=== PATIENT | female | born 1995 | race Caucasian/White ===

== ENCOUNTER 2018-09-15 17:06 | Emergency (ER) | payer OTHER ==
[2018-09-15 17:39] VITALS: BP 122/72
--- NOTE | 2018-09-16 08:23 | PHYS DOC ---
Past History Past Medical History: No Pertinent History Past Surgical History: Appendectomy, Tonsillectomy Alcohol Use: None Drug Use: None Adult General Chief Complaint Chief Complaint: BLURRED/DOUBLE VISION [facility] HPI Patient is a 23-year-old female presents with multiple complaints her primary complaint is that of headache and vision change yesterday. She is 8 weeks she did note yesterday she had approximately 20 minute period where she had loss of vision totally in her left eye began to came back but was a little blurry for a while and then she developed gradual onset of a progressively more severe headache throbbing in nature left side of the head that went away after she took some Tylenol and rested. Today she has no symptoms at all she feels totally fine but she called the advice line who recommended emergency room evaluation. In addition the patient has had a cough for 2 days as well. No fever that she knows of she does have a history of weekly headaches she's never been formally diagnosed with migraines but she usually gets left-sided headaches once a week but has never had a vision changes. Review of Systems Review of Systems Constitutional: Denies fever or chills [] Eyes: HENT: Denies nasal congestion or sore throat [] Respiratory: Cardiovascular: No additional information not addressed in HPI [] GI: Nausea was noted Musculoskeletal: Denies back pain or joint pain [] Integument: Denies rash or skin lesions [] Neurologic: Denies headache,[] Endocrine: Denies polyuria or polydipsia [] All other systems were reviewed and found to be within normal limits, except as documented in this note. Allergies Allergies Allergies Coded Allergies Type Severity Reaction Last Updated Verified No Known Drug Allergies 09/15/18 No Physical Exam Physical Exam Constitutional: Well developed, well nourished, no acute distress, non-toxic appearance. [] HENT: Normocephalic, atraumatic, bilateral external ears normal, oropharynx moist, no oral exudates, nose normal. [] Eyes: PERRLA, EOMI, conjunctiva normal, no discharge. [] Neck: Normal range of motion, no tenderness, supple, no stridor. [] Cardiovascular:Heart rate regular rhythm, no murmur [] Lungs & Thorax: Bilateral breath sounds clear to auscultation [] Abdomen: Bowel sounds normal, soft, no tenderness, no masses, no pulsatile masses. [] Skin: Warm, dry, no erythema, no rash. [] Back: No tenderness, no CVA tenderness. [] Extremities: No tenderness, no cyanosis, no clubbing, ROM intact, no edema. [] Neurologic: Alert and oriented X 3, normal motor function, normal sensory function, no focal deficits noted. []Visual valentino are intact extraocular movements are intact cerebellar function is intact speech is normal patient is completely alert and oriented. Psychologic: Affect normal, judgement normal, mood normal. [] Current Patient Data Vital Signs Vital Signs Date Time Temp Pulse Resp B/P (MAP) Pulse Ox O2 Delivery O2 Flow Rate FiO2 09/15/18 17:39 98.0 82 18 97 Room Air EKG EKG [] Radiology/Procedures Radiology/Procedures [] Course & Med Decision Making Course & Med Decision Making Pertinent Labs and Imaging studies reviewed. (See chart for details) []23-year-old female is 8 weeks presenting with spectrum of symptoms yesterday that are most consistent with migraine disease. Patient is completely neurologically intact and has no symptoms at all today she came here at the advice of the advice line phone call. Her symptoms went away and have not recurred today arguing strongly for a migraine pathology.No headache at this time. She says her vision is back to baseline as well. Patient was encouraged to take [id number] agents for continued migraine control as that seemed to work last night and to follow-up here for any new or concerning neurologic symptoms otherwise follow-up with primary are doctor if headaches were to persist on an ongoing basis. 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 Departure Departure: Impression: Primary Impression: Migraine Disposition: HOME, SELF-CARE Condition: STABLE Patient Instructions: Migraine Headache BLUE PERAZA MD Sep 16, 2018 08:23
== END 2018-09-15 17:25 | disposition home or self-care (01) ==
LOC: ER 17:06
DX: G43.909 Migraine, unspecified, not intractable, without status migrainosus (principal)
CPT/HCPCS: 99281

== ENCOUNTER 2019-08-17 21:40 | Emergency (ER) | payer OTHER ==
[~2019-08-17] VITALS: Ht 157.5 cm; Wt 52.2 kg
[2019-08-17] MEDS ORDERED: PREN1TAB58 PO (22:01)
[2019-08-17] MEDS ORDERED: ACET500T68 PO (22:03)
[2019-08-17 22:46] LABS: INFLUENZA A PATIENT NEGATIVE (NEGATIVE); INFLUENZA B PATIENT NEGATIVE (NEGATIVE)
[2019-08-17 23:05] VITALS: BP 107/69
--- NOTE | 2019-08-18 00:39 | PHYS DOC ---
Past History Past Medical History: No Pertinent History Past Surgical History: Appendectomy, Tonsillectomy Alcohol Use: None Drug Use: None Adult General Chief Complaint Chief Complaint: SORE THROAT HPI HPI Patient is a 24-year-old female presenting with Chief complaint of left ear pain sore throat bodyaches and a fever earlier in the day. No urinary symptoms no abdominal pain no vaginal bleeding. Patient is 12 weeks Review of Systems Review of Systems Constitutional: Musculoskeletal All other systems were reviewed and found to be within normal limits, except as documented in this note. Allergies Allergies Allergies Coded Allergies Type Severity Reaction Last Updated Verified No Known Drug Allergies 08/17/19 No Physical Exam Physical Exam Constitutional: Well developed, well nourished, no acute distress, non-toxic appearance. [] HENT: Normocephalic, atraumatic, bilateral external ears normal, oropharynx moist, no oral exudates, nose normal. []TMs clear bilaterally no oral exudate Eyes: PERRLA, EOMI, conjunctiva normal, no discharge. [] Neck: Normal range of motion, no tenderness, supple, no stridor. [] Cardiovascular:Heart rate regular rhythm, no murmur [] Lungs & Thorax: Bilateral breath sounds clear to auscultation [] Abdomen: Bowel sounds normal, soft, no tenderness, no masses, no pulsatile masses. [] Skin: Warm, dry, no erythema, no rash. [] Back: No tenderness, no CVA tenderness. [] Extremities: No tenderness, no cyanosis, no clubbing, ROM intact, no edema. [] Neurologic: Alert and oriented X 3, normal motor function, normal sensory func tion, no focal deficits noted. [] Psychologic: Affect normal, judgement normal, mood normal. [] Current Patient Data Vital Signs Vital Signs Date Time Temp Pulse Resp B/P (MAP) Pulse Ox O2 Delivery O2 Flow Rate FiO2 08/17/19 21:45 98.3 93 20 130/71 (90) 98 Room Air Lab Results Laboratory Tests Test 08/17/19 21:50 Influenza Type A (Rapid) Negative (NEGATIVE) Influenza Type B (Rapid) Negative (NEGATIVE) Group A Streptococcus Rapid Negative (NEGATIVE) EKG EKG [] Radiology/Procedures Radiology/Procedures [] Course & Med Decision Making Course & Med Decision Making Pertinent Labs and Imaging studies reviewed. (See chart for details) []Bedside ultrasound shows good heart tones good movement. heart tones in the 140s rapid strep and flu were negative suspect viral syndrome reassurance provided Aba Disclaimer Dragon Disclaimer This electronic medical record was generated, in whole or in part, using a voice recognition dictation system. Departure Departure: Impression: Primary Impression: Sore throat Disposition: HOME, SELF-CARE Condition: STABLE Patient Instructions: Sore Throat, [id number] BLUE PERAZA MD Aug 18, 2019 00:39
== END 2019-08-17 23:08 | disposition home or self-care (01) ==
LOC: ER 21:40
DX: O26.891 Other specified pregnancy related conditions, first trimester (principal); J02.9 Acute pharyngitis, unspecified; H92.02 Otalgia, left ear; Z3A.12 12 weeks gestation of pregnancy; Z90.89 Acquired absence of other organs
CPT/HCPCS: 87070; 87804; 87880; 99285

== ENCOUNTER 2019-09-21 20:06 | Emergency (ER) | payer OTHER ==
[~2019-09-21] VITALS: Ht 157.5 cm; Wt 52.2 kg
[~2019-09-21 20:06] MED LIST: ACET500T68 PO; PREN1TAB58 PO
[2019-09-21 20:16] VITALS: BP 101/60
--- NOTE | 2019-09-21 20:20 | ED.ADGEN ---
Past History Past Medical History: Migraines, UTI Additional Past Medical Histor: is just finishing antibx for a UTI Past Surgical History: Appendectomy, Tonsillectomy Alcohol Use: None Drug Use: None Adult General Chief Complaint Chief Complaint ".. I ve been anisha sick since last monday.. coughing, wheezing.. all the time.. Congested.. drainage.. I Passed out at work on Monday.. ended up at at the hospital diagnosis of bronchitis and severe dehydration... I also went to the Clinic at [facility] they checked my flu and strep... And they were negative... But I'm coughing so much I can even get rest at night.... " HPI HPI Patient is a 24 year old female who presents with above hx and complaints intractable nonproductive cough, wheezing, fever, malaise. Patient complaining of increased nasal congestion and drainage. Was recently evaluated at [facility] after episode of syncope. Patient advised she was diagnosed with dehydration . The patient is reportedly 17 weeks 0 days. G2 T1 . Patient reportedly had a normal ultrasound. Patient reports her first child was born of microcephaly. No other complications. Patient works at [employer] and has been exposed to sick customers. She has been taking her vitamins. Has not been on any antibiotics. Patient does continue to smoke. Patient did have asthma as child. Did have a UTI in July. Patient denies any contractions or vaginal discharge. Patient states all her symptoms are primarily upper respiratory and her nonproductive cough. Patient does have a follow-up on Monday with her primary care/OB. Patient reports her overall symptoms have been persistent and worse since Monday. Does have a history of asthma one prior hospitalization for asthma as a child Review of Systems Review of Systems Constitutional: History of fever Eyes: Denies change in visual acuity, redness, or eye pain [] HENT: History of nasal congestion and sore throat [] Respiratory: History of a nonproductive cough and wheezing Cardiovascular: No additional information not addressed in HPI [] GI: Denies abdominal pain, , vomiting, bloody stools or diarrhea []nausea at first of : Denies dysuria or hematuria [] Musculoskeletal: Denies back pain or joint pain [] Integument: Denies rash or skin lesions [] Neurologic: Denies headache, focal weakness or sensory changes [] Endocrine: Denies polyuria or polydipsia [] All other systems were reviewed and found to be within normal limits, except as documented in this note. Family History Family History Noncontributory Current Medications Current Medications Current Medications Medications (Trade) Dose Ordered Sig/Rita Start Time Stop Time Status Last Admin Dose Admin Acetaminophen (Tylenol) 1,000 mg 1X ONCE 09/21/19 20:30 09/21/19 20:34 DC 09/21/19 20:53 1,000 MG Albuterol Sulfate (Ventolin Hfa Inhaler) 2 puff 1X ONCE 09/21/19 20:30 09/21/19 20:34 DC 09/21/19 20:30 2 PUFF Azithromycin (Zithromax) 500 mg 1X ONCE 09/21/19 20:30 09/21/19 20:34 DC 09/21/19 20:53 500 MG Diphenhydramine HCl (Benadryl) 25 mg 1X ONCE 09/21/19 20:30 09/21/19 20:34 DC 09/21/19 20:51 25 MG Prednisone (Prednisone) 50 mg 1X ONCE 09/21/19 20:30 09/21/19 20:34 DC 09/21/19 20:52 50 MG Allergies Allergies Allergies Coded Allergies Type Severity Reaction Last Updated Verified No Known Drug Allergies 08/17/19 No Physical Exam Physical Exam Constitutional: Well developed, well nourished, moderate acute distress, non- toxic appearance. [] HENT: Normocephalic, atraumatic, bilateral external ears normal, mild injection bilateral TMs with some fluid, oropharynx moist, mild injection pharynx, no oral exudates, nose swollen turbinates and clear rhinorrhea Eyes: PERRLA, EOMI, conjunctiva normal, no discharge. [] Neck: Normal range of motion, no tenderness, supple, no stridor. [] Cardiovascular:Heart rate regular rhythm, no murmur [] Lungs & Thorax: Bilateral breath sounds equal apexes scattered wheezes on auscultation [.Pt. has]persistent cough Abdomen: Bowel sounds normal, soft, no tenderness, no masses, no pulsatile masses. Old surgery scars. Gravid. Skin: Warm, dry, no erythema, no rash. [] Back: No tenderness, no CVA tenderness. [] Extremities: No tenderness, no cyanosis, no clubbing, ROM intact, no edema. No cording appreciated. Neurologic: Alert and oriented X 3, normal motor function, normal sensory function, no focal deficits noted. DTRs are +2 at patella and brachial. Psychologic: Affect anxious, judgement normal, mood normal. [] Current Patient Data Vital Signs Vital Signs Date Time Temp Pulse Resp B/P (MAP) Pulse Ox O2 Delivery O2 Flow Rate FiO2 09/21/19 20:40 97 Room Air 09/21/19 20:16 98.4 117 16 EKG EKG [] Radiology/Procedures Radiology/Procedures [] Course & Med Decision Making Course & Med Decision Making Pertinent Labs and Imaging studies reviewed. (See chart for details) Patient push fluids. Patient take Tylenol only for discomfort and fever. Patient take prednisone 50 mg a day for 5 days. Patient to use MDI 2 puffs 4 times a day. 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 Patient to take his Zithromax 250 mg daily for 5 days. Patient return if any concerns. Must follow-up. Strongly encouraged patient to stop smoking. For marked nasal congestion and drainage may use Benadryl 25 mg up 4 times a day. Patient continue vitamins. Must push fluids until urine is clear. [] Final Impression Final Impression 1. Asthma Exacerbation 2. G2, T1, currently 17 wks by US 3. Upper Respiratory Infection/ Bronchitis 4. Tobacco use[] Dragon Disclaimer Dragon Disclaimer This electronic medical record was generated, in whole or in part, using a voice recognition dictation system. Dragon Disclaimer This chart was dictated in whole or in part using Voice Recognition software in a busy, high-work load, and often noisy Emergency Department environment. It ma y contain unintended and wholly unrecognized errors or omissions. Dragon Disclaimer This chart was dictated in whole or in part using Voice Recognition software in a busy, high-work load, and often noisy Emergency Department environment. It may contain unintended and wholly unrecognized errors or omissions. MANE HERMAN MD Sep 21, 2019 20:20
[2019-09-21] MEDS ORDERED: predniSONE 10 MG TABLET PO ONE (20:30)
[2019-09-21] MEDS ORDERED: AZITHROMYCIN 250 MG TABLET. PO ONE (20:30)
[2019-09-21] MEDS ORDERED: ACETAMINOPHEN 500 MG TABLET PO ONE (20:30)
[2019-09-21] MEDS ORDERED: diphenhydrAMINE HCL 25 MG CAPSULE PO ONE (20:30)
[2019-09-21] MEDS ORDERED: ALBUTEROL SULFATE 8GM INHALER. INH ONE (20:30)
[2019-09-21] MEDS ORDERED: PRED50TA PO (20:40)
[2019-09-21] MEDS ORDERED: AZIT250T PO (20:41)
== END 2019-09-21 21:00 | disposition home or self-care (01) ==
LOC: ER 20:06
DX: O99.512 Diseases of the respiratory system complicating pregnancy, second trimester (principal); O23.42 Unspecified infection of urinary tract in pregnancy, second trimester; G43.909 Migraine, unspecified, not intractable, without status migrainosus; Z90.89 Acquired absence of other organs; Z3A.17 17 weeks gestation of pregnancy
CPT/HCPCS: 94640; 99284; J0456; J7512; J7613; Q0163; 94664

== ENCOUNTER → 2020-09-14 | Outpatient (CLI) | payer OTHER ==
[~2020-09-14] MED LIST changes: +AZIT250T PO; +PRED50TA PO
--- NOTE | 2020-09-14 15:18 | RAD ---
EXAM: Lumbar spine, 5 views. HISTORY: Pain. COMPARISON: None. FINDINGS: 5 views of the lumbar spine are obtained. There is no listhesis. The vertebral bodies are normal in height and the disc spaces are preserved. There is a small suspected incidental calcification overlying the right upper quadrant which may be due to a granuloma or nephrolithiasis IMPRESSION: No acute osseous finding. Electronically signed by: Gissell Joseph MD (09/14/2020 3:15 PM) [id number]
== END ==
LOC: RAD 14:32
PROVIDERS: ATTEND Physician Assistant Medical
DX: M54.5 Low back pain (principal)
CPT/HCPCS: 72110

== ENCOUNTER 2021-10-29 15:22 | Emergency (ER) | payer OTHER ==
[~2021-10-29] VITALS: Ht 157.5 cm; Wt 53.7 kg
[2021-10-29 15:32] VITALS: BP 123/76
--- NOTE | 2021-10-29 15:52 | PHYS DOC ---
Past History Past Medical History: No Pertinent History Additional Past Medical Histor: is just finishing antibx for a UTI (RICCO PRESCOTT APRN) Past Surgical History: Appendectomy, Tonsillectomy, Tubal ligation (RICCO PRESCOTT APRN) Alcohol Use: None Drug Use: None (RICCO PRESCOTT APRN) General Adult EDM: Chief Complaint: VAGINAL BLEEDING HPI: HPI: Patient is a 26-year-old female who presents to the emergency department for pelvic cramping and vaginal bleeding that started on Monday. Patient reports that she started her menstrual period on Monday and as regularly scheduled. She states that her menses has been heavier and she has had worsening of her cramping. She rates her pain 6 out of 10. She states that the majority of her pain is most severe in her right pelvic area. She reports that she is using tampons not pads and she has saturated 2 pads in 4 hours. She reports that the vaginal bleeding is bright red with clots. She took a test at home and it was negative. Patient's OB is Dr. Peña. She states no concern for STDs. She denies any nausea, vomiting, urinary symptoms, dizziness. She has a history of a tubal ligation. (RICCO PRESCOTT APRN) Review of Systems: Review of Systems: GI: See HPI : See HPI Neurologic: See HPI (RICCO PRESCOTT APRN) Allergies: Allergies: Allergies Coded Allergies Type Severity Reaction Last Updated Verified No Known Drug Allergies 08/17/19 No (RICCO PRESCOTT APRN) Physical Exam: PE: Constitutional: Well developed, well nourished, no acute distress, non-toxic appearance. [] HENT: Normocephalic, atraumatic, bilateral external ears normal, oropharynx moist, no oral exudates, nose normal. [] Eyes: PERRL, EOMI, conjunctiva normal, no discharge. [] Neck: Normal range of motion, no stridor Cardiovascular:Heart rate regular rhythm, no murmur [] Lungs & Thorax: Bilateral breath sounds clear to auscultation [] Abdomen: Bowel sounds normal, soft, right pelvic pain with palpation, no masses, no pulsatile masses. [] Skin: Warm, dry, no erythema, no rash. [] Back: Normal range of motion Extremities: No tenderness, no cyanosis, no clubbing, ROM intact, no edema. [] Neurologic: Alert and oriented X 3, normal motor function, normal sensory function, no focal deficits noted. [] Psychologic: Affect normal, judgement normal, mood normal. [] (RICCO PRESCOTT APRN) Current Patient Data: Labs: Laboratory Tests Test 10/29/21 15:56 10/29/21 16:24 10/29/21 16:28 White Blood Count 9.4 x10^3/uL Red Blood Count 4.42 x10^6/uL Hemoglobin 13.3 g/dL Hematocrit 39.9 % Mean Corpuscular Volume 90 fL Mean Corpuscular Hemoglobin 30 pg Mean Corpuscular Hemoglobin Concent 33 g/dL Red Cell Distribution Width 14.3 % Platelet Count 234 x10^3/uL Neutrophils (%) (Auto) 67 % Lymphocytes (%) (Auto) 25 % Monocytes (%) (Auto) 7 % Eosinophils (%) (Auto) 1 % Basophils (%) (Auto) 0 % Neutrophils # (Auto) 6.3 x10^3uL Lymphocytes # (Auto) 2.4 x10^3/uL Monocytes # (Auto) 0.6 x10^3/uL Eosinophils # (Auto) 0.1 x10^3/uL Basophils # (Auto) 0.0 x10^3/uL Sodium Level 140 mmol/L Potassium Level 4.0 mmol/L Chloride Level 104 mmol/L Carbon Dioxide Level 27 mmol/L Anion Gap 9 Blood Urea Nitrogen 12 mg/dL Creatinine 0.8 mg/dL Estimated GFR (Cockcroft-Gault) 86.0 BUN/Creatinine Ratio 15 Glucose Level 96 mg/dL Calcium Level 8.9 mg/dL Total Bilirubin 0.2 mg/dL Aspartate Amino Transf (AST/SGOT) 9 U/L Alanine Aminotransferase (ALT/SGPT) 15 U/L Alkaline Phosphatase 62 U/L Total Protein 7.4 g/dL Albumin 4.1 g/dL Albumin/Globulin Ratio 1.2 Urine Collection Type Clean catch Urine Color Yellow Urine Clarity Clear Urine pH 7.0 Urine Specific Chinle 1.015 Urine Protein Neg Urine Glucose (UA) Neg mg/dL Urine Ketones (Stick) Neg mg/dL Urine Blood Neg Urine Nitrite Neg Urine Bilirubin Neg Urine Urobilinogen Dipstick 0.2 mg/dL Urine Leukocyte Esterase Neg Urine RBC 0 /HPF Urine WBC 0 /HPF Urine Squamous Epithelial Cells Few /LPF Urine Bacteria 0 /HPF Bedside Urine HCG, Qualitative hcg negative Vital Signs: Vital Signs Date Time Temp Pulse Resp B/P (MAP) Pulse Ox O2 Delivery O2 Flow Rate FiO2 10/29/21 15:32 98.0 85 18 123/76 (92) 100 Room Air (RICCO PRESCOTT APRN) EKG: EKG: [] (RICCO PRESCOTT APRN) Radiology/Procedures: Radiology/Procedures: []PROCEDURE: PELVIS COMPLETE EXAMINATION: US PELVIS COMPLETE, 10/29/2021 3:48 PM CLINICAL INDICATION: Right pelvic pain, vaginal bleeding TECHNIQUE: Grayscale, color and spectral Doppler ultrasound images of the pelvis via transabdominal approach. COMPARISON: None. FINDINGS: The uterus measures 7.3 x 5.2 x 3.2 cm. The endometrial stripe measures 6 mm in thickness. No myometrial mass. The right ovary measures 3.5 x 2.4 x 1.9 cm. The left ovary measures 3.0 x 2.4 x 2.1 cm. Normal ovarian blood flow bilaterally. No adnexal mass or free fluid. IMPRESSION: Normal pelvic ultrasound. Electronically signed by: Teresa Martin MD (10/29/2021 5:20 PM) [id number] DICTATED AND SIGNED BY: TERESA MARTIN MD DATE: 10/29/211717 CC: RICCO PRESCOTT APRN; PCP,NO ~MTH0 0 (RICCO PRESCOTT APRN) Heart Score: C/O Chest Pain: N/A Risk Factors: Risk Factors: DM, Current or recent (<one month) smoker, HTN, HLP, family history of CAD, obesity. Risk Scores: Score 0 - 3: 2.5% MACE over next 6 weeks - Discharge Home Score 4 - 6: 20.3% MACE over next 6 weeks - Admit for Clinical Observation Score 7 - 10: 72.7% MACE over next 6 weeks - Early Invasive Strategies (RICCO PRESCOTT APRN) Course & Med Decision Making: Course & Med Decision Making Pertinent Labs and Imaging studies reviewed. (See chart for details) [] Patient presents to the emergency department for right pelvic pain with heavier vaginal bleeding. Patient is on her menses. She states that her menses was regular this month but is just heavier with more severe pain. Patient denies any lightheadedness. She states that she is saturated 2 pads in 4 hours. Patient has history of tubal ligation. Work-up in the ER consisted of blood work, urinalysis and ultrasound. I discussed performing a pelvic exam on patient but she states she has no concern for STDs and declined a pelvic exam. Blood work was unremarkable. Urinalysis unremarkable. Ultrasound showed no acute findings and there was good bilateral blood flow to ovaries. Patient is most likely experiencing menorrhagia. Patient advised to follow-up with her OB. I discussed with patient all findings and diagnostic testing as well as the need to follow-up with PCP for further evaluation and treatment or return to the ER if any new or worsening symptoms. Strict return precautions were also discussed at length. Patient voiced understanding and agreement with the plan. Patient is hemodynamically stable at the time of disposition. (RICCO PRESCOTT APRN) Dragon Disclaimer: Dragon Disclaimer: This electronic medical record was generated, in whole or in part, using a voice recognition dictation system. (RICCO PRESCOTT APRN) Attending Co-Sign The patient was seen and interviewed as well as examined at the bedside. The chart was reviewed. The case was discussed. Agree with the plan of care. (SONAM MATTSON DO) Departure Departure: Impression: Primary Impression: Menorrhagia Qualified Codes: N92.0 - Excessive and frequent menstruation with regular cycle Disposition: HOME / SELF CARE / HOMELESS Condition: GOOD Referrals: PCP,NO (PCP) Patient Instructions: Menorrhagia Additional Instructions: You are seen in the emergency department for half year menses and pelvic pain. Your blood work was unremarkable. Your urinalysis did not show any urinary trac t infection. The ultrasound did not show any acute findings. It is likely that you are just experiencing a heavy period. Please follow-up with your OB on Monday regarding your ER visit. For your pain he can take Tylenol and/ibuprofen. Please return to the emergency department if you notice worsening of your bleeding where you are saturating more than 1 pad an hour, intractable nausea or vomiting, severe abdominal pain, dizziness or syncope. RICCO PRESCOTT APRN Oct 29, 2021 15:52 SONAM MATTSON DO Oct 30, 2021 15:57
[2021-10-29 16:21] LABS: BASO % 0 % (0-3); EOS # 0.1 x10^3/uL (0.0-0.7); EOS % 1 % (0-3); HEMATOCRIT 39.9 % (36.0-47.0); HEMOGLOBIN 13.3 g/dL (12.0-15.5); LYMPH # 2.4 x10^3/uL (1.0-4.8); LYMPH % 25 % (24-48); MEAN CORPUSCULAR HEMOGLOBIN 30 pg (25-35); MEAN CORPUSCULAR HGB CONC 33 g/dL (31-37); MEAN CORPUSCULAR VOLUME 90 fL (79-100); MONO # 0.6 x10^3/uL (0.0-1.1); MONO % 7 % (0-9); NEUT # 6.3 x10^3uL (1.8-7.7); NEUT % 67 % (31-73); PLATELET COUNT 234 x10^3/uL (140-400); RED BLOOD COUNT 4.42 x10^6/uL (3.50-5.40); RED CELL DISTRIBUTION WIDTH 14.3 % (11.5-14.5); WHITE BLOOD COUNT 9.4 x10^3/uL (4.0-11.0)
[2021-10-29 16:26] LABS: CALCIUM 8.9 mg/dL (8.5-10.1); CREATININE 0.8 mg/dL (0.6-1.0)
[2021-10-29 16:33] LABS: ALBUMIN 4.1 g/dL (3.4-5.0); ALBUMIN/GLOBULIN RATIO 1.2 (1.0-1.7); TOTAL BILIRUBIN 0.2 mg/dL (0.2-1.0); TOTAL PROTEIN 7.4 g/dL (6.4-8.2)
[2021-10-29 17:17] LABS: BILIRUBIN,URINE NEG (NEG); CLARITY,URINE CLEAR; COLOR,URINE YELLOW; GLUCOSE,URINE NEG (NEG)
[2021-10-29 17:18] LABS: BACTERIA,URINE 0 /HPF (0-FEW); NITRITE,URINE NEG (NEG); RBC,URINE 0 /HPF (0-2); SQUAMOUS EPITHELIAL CELL,UR FEW /LPF; UROBILINOGEN,URINE 0.2 mg/dL (0.2 mg/dL); WBC,URINE 0 /HPF (0-4)
--- NOTE | 2021-10-29 17:22 | RAD ---
EXAMINATION: US PELVIS COMPLETE, 10/29/2021 3:48 PM CLINICAL INDICATION: Right pelvic pain, vaginal bleeding TECHNIQUE: Grayscale, color and spectral Doppler ultrasound images of the pelvis via transabdominal a pproach. COMPARISON: None. FINDINGS: The uterus measures 7.3 x 5.2 x 3.2 cm. The endometrial stripe measures 6 mm in thickness. No myometr ial mass. The right ovary measures 3.5 x 2.4 x 1.9 cm. The left ovary measures 3.0 x 2.4 x 2.1 cm. Normal ovari an blood flow bilaterally. No adnexal mass or free fluid. IMPRESSION: Normal pelvic ultrasound. Electronically signed by: Teresa Martin MD (10/29/2021 5:20 PM) [id number]
== END 2021-10-29 17:45 | disposition home or self-care (01) ==
LOC: ER 15:22
DX: N92.0 Excessive and frequent menstruation with regular cycle (principal); Z98.51 Tubal ligation status
CPT/HCPCS: 36415; 76856; 80053; 81001; 81025; 85025; 99284-25